=== PATIENT | male | born 1975 ===

== ENCOUNTER → 2023-10-05 12:00 | Outpatient (REF) | payer BC, SELFPAY | LOC: DHSLP 12:00 | PROVIDERS: ATTENDING PHYSICIAN Internal Medicine Cardiovascular Disease; FAMILY PHYSICIAN Internal Medicine | DX: G47.33 Obstructive sleep apnea (adult) (pediatric) (principal) | CPT/HCPCS: 95800 ==

== ENCOUNTER → 2023-10-27 08:10 | Outpatient (REF) | payer BC, SELFPAY | LOC: DHCBS MAIN 08:10 | PROVIDERS: ATTENDING PHYSICIAN Internal Medicine Cardiovascular Disease; FAMILY PHYSICIAN Internal Medicine | DX: R06.09 Other forms of dyspnea (principal) | CPT/HCPCS: 93306 ==

== ENCOUNTER 2024-11-11 23:04 | Emergency (ER) | payer BC, SELFPAY ==
[2024-11-11 23:06] VITALS: BP 120/70
[2024-11-12 00:09] VITALS: BMI 38.0
--- NOTE | 2024-11-12 00:13 | ED.GENMED ---
History of Present Illness
General
Chief Complaint: Back Pain
Source: patient
Time Seen by Provider: 11/11/24 23:59
History of Present Illness
History of Present Illness:
49-year-old male with past medical history of hypertension presenting to the emergency department for evaluation of acute onset of lower back pain that began while he was attempting to lift a crate of water while at the supermarket earlier this
evening and since that time has been unable to stand up straight and has had significant difficulty getting comfortable, worse when ambulating, no relief with Tylenol. Patient recently returned home from a trip to [place] yesterday. Denies trauma,
focal weakness or numbness, fevers or any other concerns. No history of similar.
Past History
Past History
ED Past Medical History: HTN
ED Past Surgical History: Orthopedic
Social History
Tobacco: Non-smoker
Alcohol: Occasional
Drug: None
Personal:
Living: with family
Employment: Employed
Review of Systems
Review of Systems
All Other Systems: ROS reviewed and negative except as documented in HPI and ROS
Phy Exam
Physical Exam
Physical Exam:
GENERAL: Alert , in no apparent distress, appears uncomfortable especially with movement, holding himself upright with crutches, unable to stand up fully straight
EYE: clear conjunctiva b/l
NECK: Supple
ENT: o/p clr, mmm.
ABDOMEN: Soft, without focal tenderness, no r/g, no cvat
BACK: Limited range of motion secondary to pain, no focal tenderness, no midline bony tenderness, no rashes
NEUROLOGICAL: Alert and oriented, no focal neuro deficits. sensation grossly intact and equal to light touch bilateral lower extremities, able to ambulate with assistance of crutches
SKIN: Warm and dry, skin intact.
MUSCULOSKELETAL: No edema, well perfused. EHL intact bilaterally
PSYCH: Normal and appropriate interaction.,
Scores
Heart Failure Risk
Heart Failure Risk Score: Not Applicable
Heart Score for Chest Pain Patients
STEMI patient?: Not applicable
Withdrawal Assessment of Alcohol
Withdrawal Assessment Completed?: Not applicable
Course
Orders/Labs/Results
Orders:
Orders
11/12/24 00:09
Dexamethasone Sod Phosphate [Decadron] 10 mg IM NOW STA
Diazepam [Valium] 5 mg PO NOW STA
Lidocaine [Lidocaine 4% Patch] 1 patch TOPICAL NOW STA
Apply Lidocaine patch(s) to:: lower back
CR Lumbar Spine Comp Min 4 Vw* Urgent
Comment:
Reason For Exam: low back pain
Vital Signs
Initial and Last Documented VS:
Initial Vital Signs
Temp Pulse Resp BP Pulse Ox
97.8 F 70 22 120/70 99
11/11/24 23:06 11/11/24 23:06 11/11/24 23:06 11/11/24 23:06 11/11/24 23:06
Last Documented Vital Signs
Temp Pulse Resp BP Pulse Ox
97.8 F 70 18 118/82 97
11/11/24 23:06 11/12/24 01:14 11/12/24 01:14 11/12/24 01:14 11/12/24 01:14
MDM/Problems Addressed
Differential Diagnosis Includes:
Lumbar strain, no concern for infectious etiology nor acute neurogenic claudication
MDM/Problems Addressed:
49-year-old male presenting to the ER for evaluation of low back pain that began shortly after lifting a crate of water. Patient states pain continues with any attempted movement. Took Tylenol prior to arrival with minimal relief. Unable to take
NSAIDs due to allergy. Clinically I suspect lumbar strain to be the most likely diagnosis. Will treat here in the ER with Decadron, Valium and topical Lidoderm patch. X-ray ordered. Anticipate discharge home with continued outpatient treatment.
*Radiology
Radiology exam reviewed: preliminary read by ED provider (No acute fracture or malalignment)
*Pulse Oximetry
Patient hypoxic: no
*Critical Care Note
Total Time (30-74mins, 75-104mins- exclusive of procedures): Not Applicable
Patient Management
Escalation/DeEscalation of care consider admission/obs:
Patient with some improved pain following meds. XR unremarkable. Stable for d/c home
ED Attending Note
-
Portions of this chart may have been created with voice recognition software.� Occasional wrong word or��sound alike� substitutions may have occurred due to the inherent limitations of voice recognition software.
Discharge Plan
Departure
Patient Disposition: Home (Routine Discharge)
Date of Disposition: 11/12/24
Time of Disposition: 01:22
Patient with high blood pressure during this ER visit?: No
Discharge Problem:
Lumbar strain
Instructions: Low Back Pain (DC)
Prescriptions:
New
methylprednisolone [Medrol (Booige)] 4 mg tablets,dose pack
4 mg PO DIRECTED Qty: 21 0RF
diazepam [Valium] 5 mg tablet
5 mg PO BID PRN (Reason: muscle spasm) Qty: 10 0RF
Referrals:
Nadja Abel MD [Family Provider] -
Interventions
Interventions:
*Risk Screen - Suicide Last Done: 11/11/24 23:06
*General Assessment Last Done: 11/12/24 00:10
*Neglect/Abuse Screening Last Done: 11/11/24 23:06
*ED- Fall Risk Assessment Last Done: 11/12/24 00:09
*ED COVID-19 Vaccine History Last Done: 11/12/24 00:09
*Nursing Disposition Last Done: 11/12/24 01:37
ED-Musculoskeletal Assessment Last Done: 11/12/24 00:08
Discharge Date and Time
Discharge Date/Time: 11/12/24 01:40
Print Language: ARMENIAN
[2024-11-12] MEDS: VALIUM 5 MG PO (00:14)
[2024-11-12] MEDS: LIDOCAINE 4% PATCH 1 PATCH TOPICAL (00:15)
[2024-11-12] MEDS: DECADRON 10 MG IM (00:17)
[2024-11-12 01:14] VITALS: BP 118/82
== END 2024-11-12 01:40 | disposition home or self-care (01) ==
LOC: EMR 23:04
PROVIDERS: EMERGENCY PHYSICIAN Emergency Medicine; FAMILY PHYSICIAN Internal Medicine
DX: S39.012A Strain of muscle, fascia and tendon of lower back, initial encounter (principal); X50.0XXA Overexertion from strenuous movement or load, initial encounter; Y93.89 Activity, other specified; I10 Essential (primary) hypertension; Z88.6 Allergy status to analgesic agent; Z88.1 Allergy status to other antibiotic agents
CPT/HCPCS: 99284; 96372; 72110